=== PATIENT | male | born 1945 | race Caucasian/White ===

== ENCOUNTER 2021-03-29 10:23 | Emergency (ER) | payer MEDICARE ==
[~2021-03-29] VITALS: Ht 175.3 cm; Wt 94.7 kg
[2021-03-29 11:21] LABS: BASOPHILS % (AUTO) 1 % (0-1); EOSINOPHILS % (AUTO) 0 % (1-7); LYMPHOCYTES % (AUTO) 22 % (22-44); MEAN CORPUSCULAR HEMOGLOBIN 32.1 pg (27.5-34.5); MEAN CORPUSCULAR HGB CONC 34.2 g/dL (33.2-36.2); MEAN PLATELET VOLUME 7.5 fL (7.4-10.4); MONOCYTES % (AUTO) 7 % (2-9); NEUTROPHILS % (AUTO) 71 % (42-75); PLATELET COUNT 257 x10^3/uL (130-400); RED BLOOD COUNT 4.51 x10^6/uL (4.38-5.82); RED CELL DISTRIBUTION WIDTH 12.8 % (9.4-14.8)
[2021-03-29 11:31] LABS: ALBUMIN 3.5 g/dL (3.4-5.0); ANION GAP 4 mmol/L (5-15); CALCIUM 8.2 mg/dL (8.5-10.1); CHLORIDE 102 mmol/L (98-107); CREATININE 0.96 mg/dL (0.7-1.3)
--- NOTE | 2021-03-29 12:35 | NUR ---
brine well operator: pt from lobby to room 34
[2021-03-29] MEDS ORDERED: SODIUM CHLORIDE FLUSH 10ML SYR IVF ONE (14:00)
[2021-03-29] MEDS ORDERED: ALBUTEROL SULFATE 2.5 MG/3 ML NPPB ONE (14:00)
[2021-03-29] MEDS ORDERED: DOXYCYCLINE 100MG TABLET PO ONE (14:00)
[2021-03-29] MEDS ORDERED: DEXAMETHASONE 4 MG/ML, 1ML IVPush ONE (14:00)
[2021-03-29] MEDS ORDERED: BAMLANIVIMAB 700 MG, ETESEVIMAB 1,400 MG in SODIUM CHLORIDE 0.9% 250 ML IV ONE (14:00)
[2021-03-29] MEDS ORDERED: FILTER 0.22 MICRON IV ONE (14:00)
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
[2021-03-29] MEDS ORDERED: DOXYCYCLINE 100MG TABLET ONE ×2 (14:23→14:33)
[2021-03-29] MEDS ORDERED: DEXAMETHASONE 4 MG/ML, 1ML ONE (14:23)
[2021-03-29] MEDS ORDERED: ALBUTEROL SULFATE 2.5 MG/3 ML ONE (14:23)
[2021-03-29 17:53] VITALS: BP 110/50
--- NOTE | 2021-03-29 18:14 | NUR ---
PT REC'VD DISCHARGE INSTRUCTIONS AND EDUCATION. PT AND SPOUSE HAD NO FURTHER QUESTIONS. PT AND SPOUSE AMBULATED TO DC AREA, STEADY GAIT.
== END 2021-03-29 18:20 | disposition home or self-care (01) ==
LOC: ED 14:58
DX: U07.1 COVID-19 (principal); J44.9 Chronic obstructive pulmonary disease, unspecified
CPT/HCPCS: 36415; 71045; 80048; 82040; 85025; 93005; 94640; 96374; 99285; J1100; J7050; J7613; M0239; Q0239; Q0245; 96365; 96366; 96375

== ENCOUNTER 2021-04-06 04:49 | Emergency (ER) | payer MEDICARE ==
[~2021-04-06] VITALS: Ht 177.8 cm; Wt 94.4 kg
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
[2021-04-06] MEDS ORDERED: FLUT1BLS3 IH (05:29)
[2021-04-06] MEDS ORDERED: ATOR20TA37 PO (05:29)
[2021-04-06] MEDS ORDERED: METF500T17 PO (05:29)
[2021-04-06] MEDS ORDERED: LATA2.5D4 EACHEYE (05:29)
[2021-04-06] MEDS ORDERED: NICO2GUM5 PO (05:29)
[2021-04-06 05:54] LABS: MEAN CORPUSCULAR HEMOGLOBIN 32.1 pg (27.5-34.5); MEAN CORPUSCULAR HGB CONC 34.2 g/dL (33.2-36.2); MEAN PLATELET VOLUME 7.4 fL (7.4-10.4); PLATELET COUNT 376 x10^3/uL (130-400)
[2021-04-06] MEDS ORDERED: ALBUTEROL/IPRATROPIUM 2.5MG/0.5MG, 3 ML NPPB ONE (06:00)
[2021-04-06 06:05] LABS: ALANINE AMINOTRANSFERASE 33 U/L (12-78); ALBUMIN 2.8 g/dL (3.4-5.0); ANION GAP 6 mmol/L (5-15); CALCIUM 8.6 mg/dL (8.5-10.1); CHLORIDE 103 mmol/L (98-107)
[2021-04-06 06:07] LABS: ALKALINE PHOSPHATASE 44 U/L (45-117); BILIRUBIN,TOTAL 0.9 mg/dL (0.2-1.0); TOTAL PROTEIN 6.8 g/dL (6.4-8.2)
--- NOTE | 2021-04-06 06:21 | NUR ---
pt sleeping, at bedside, no s/s of distress
--- NOTE | 2021-04-06 06:49 | NUR ---
REPORT RECEIVED FROM DORIAN ANDERSON
[2021-04-06 06:59] LABS: <PLATELET ESTIMATE> ADEQUATE; <PLT MORPHOLOGY> NORMAL PLT MORPH; <RBC MORPHOLOGY> NORMAL; BANDS%(MANUAL) 6 % (0-7); LYMPH#(MANUAL) 0.81 x10^3/uL (1-3.4); LYMPHS% (MANUAL) 7 % (22-44); METAMYELOCYTES# (MANUAL) 0.12 x10^3/uL (0-0); METAMYELOCYTES% (MANUAL) 1 % (0-1); MONOS#(MANUAL) 0.81 x10^3/uL (0.3-2.7); MONOS% (MANUAL) 7 % (2-9); SEG#(MANUAL) 9.16 x10^3/uL (1.8-6.8); SEGS% (MANUAL) 79 % (42-75)
--- NOTE | 2021-04-06 07:34 | NUR ---
ROAD TEST COMPLETED, RESTING 02 SAT 87-90%, AMBULATORY O2 SAT 77%. PT TOOK 5 MINS TO ACHEIVE RESTING RA 02 SAT 90% FOLLOWING AMBULATION. LAW NOTIFIED.
--- NOTE | 2021-04-06 07:55 | NUR ---
PT RESTING IN BED, A&O, RESPS EVEN AND UNLABORED, VSS, NADN. ERMJerome LAW AT BEDSIDE TO DISCUSS POC.
[2021-04-06] MEDS ORDERED: ALBUTEROL/IPRATROPIUM 2.5MG/0.5MG, 3 ML ONE (08:31)
--- NOTE | 2021-04-06 08:44 | NUR ---
PT A&O, RESPS EVEN AND UNLABORED, VSS, NADN. NEBULIZER TREATMENT IN PROGRESS. AT BEDSIDE.
--- NOTE | 2021-04-06 08:45 | NUR ---
preceptor RN note: order received for pt to be discharged and establish home oxygen. order and patient information faxxed to patient's preferred oxygen company, [facility]. this RN spoke with company rep who confirmed that this compancy accepts pt's insurance. fax confirmation receipt received. pt to be discharged once it is confirmed that oxygen company will deliver same day, as pt has one portable tank from previous prescription to use at home while waiting.
[2021-04-06 10:24] VITALS: BP 119/55
--- NOTE | 2021-04-06 10:26 | NUR ---
[facility] CALLED BACK TO INFORM THAT ADDITIONAL INFORMATION MUST BE PROVIDED BY MD IN ORDER FORM IN ORDER TO FULFIL OXYGEN EQUIPMENT ORDER. MD PROVIDING PATIENT CARE IN ANOTHER ROOM AT TIME OF CALL. PT NOTIFIED RN THAT HE IS LEAVING, PT NOTIFIED THAT OXYGEN COMPANY REQUESTED IS REQUIRING ADDITIONAL INFO FROM MD IN ORDER FORM BEFORE ORDER CAN BE FULFILLED. PT HAS OWN PORTABLE OXYGEN TANK (LEFT FROM A PREVIOUS ORDER). COMPANY THAT PREVIOUSLY PROVIDED PT WITH HOME OXYGEN IS NOW OUT OF BUSINESS. PT ATTACHED HIMSELF TO PORTABLE OXYGEN TANK AND STATES "I DON'T CARE IF THE ORDER ISN'T COMPLETE, I'M NOT WAITING HERE ANYMORE." PT INFORMED THAT THERE IS NO CONFIRMATION AT THIS TIME THAT HE WILL RECEIVE OXYGEN TODAY. PT INFORMED OF RISKS OF LEAVING PRIOR TO SECURING HOME OXYGEN SUPPLY. PT STATES HE ACCEPTS THIS RISK AND CHOOSES TO LEAVE ANYWAY. PT DENIES SOB. 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 PT REFUSING TO AWAIT FOR MD TO UPDATE ORDER FORM AND FAX. PT GIVEN DC INSTRUCTIONS AND SCRIPT, EDUCATED REGARDING RX FOR ALBUTEROL AND PREDNISONE, VERBALIZES UNDERSTANDING. PT AMBULATORY TO DC DESK WITH STEADY GAIT ACCOMPANIED BY . STATES "WE CAN'T STOP HIM FROM LEAVING." ASHLIN AT [place].
--- NOTE | 2021-04-06 10:43 | NUR ---
MD NOVOA NOTIFIED OXYGEN COMPANY REQUIRING ADDITIONAL INFORMATION ON OXYGEN ORDER FORM, FORM UPDATED PER OXYGEN COMPANY REQUEST BY . FORM RE-FAXXED TO [facility]. INFORMED PT HAS LEFT ED, NO FURTHER ORDERS RECEIVED. PT'S WAS PROVIDED WITH PHONE NUMBER TO [facility] TO CORRESPOND PRIOR TO PT DEPARTURE.
== END 2021-04-06 10:26 | disposition home or self-care (01) ==
LOC: ED 05:05
DX: U07.1 COVID-19 (principal); J96.91 Respiratory failure, unspecified with hypoxia; J12.82 Pneumonia due to coronavirus disease 2019; R94.31 Abnormal electrocardiogram [ECG] [EKG]; E11.9 Type 2 diabetes mellitus without complications; J44.9 Chronic obstructive pulmonary disease, unspecified
CPT/HCPCS: 36415; 71045; 80053; 83605; 84145; 85025; 93005; 94640